=== PATIENT | male | born 1940 | race Caucasian/White ===

== ENCOUNTER 2018-03-24 22:53 | Emergency (ER) | payer MEDICARE, BC ==
[2018-03-24 23:23] LABS: BASOPHILS # (AUTO) 0.1 10^3/uL (0.0-0.1); BASOPHILS % (AUTO) 1.4 %; EOSINOPHILS # (AUTO) 0.3 10^3/uL (0.0-0.7); EOSINOPHILS % (AUTO) 4.3 %; HGB - HEMOGLOBIN 14.8 g/dL (14.0-18.0); LYMPHOCYTES # (AUTO) 1.5 10^3/uL (1.5-3.5); MEAN CORPUSCULAR HGB CONC 34.4 g/dL (32.0-36.0); MEAN PLATELET VOLUME 8.1 fL (7.4-11.4); MONOCYTES # (AUTO) 0.8 10^3/uL (0.0-1.0); MONOCYTES % (AUTO) 9.3 %; NEUTROPHILS # (AUTO) 5.4 10^3/uL (1.5-6.6); PLT - PLATELET COUNT 204 10^3/uL (130-450); RED BLOOD COUNT 4.64 10^6/uL (4.70-6.10); RED CELL DISTRIBUTION WIDTH 13.4 % (12.0-15.0); WHITE BLOOD COUNT 8.1 x10^3/uL (4.8-10.8)
[2018-03-24 23:38] LABS: ALBUMIN/GLOBULIN RATIO 1.1 (1.0-2.2); BILIRUBIN,TOTAL 0.7 mg/dL (0.2-1.0); CALCIUM 9.1 mg/dL (8.5-10.3); CREATININE 0.9 mg/dL (0.6-1.2); TOTAL PROTEIN 7.7 g/dL (6.7-8.2)
[2018-03-24 23:42] LABS: TROPONIN I < 0.04 ng/mL (<0.49)
[2018-03-24 23:44] LABS: CREATINE KINASE MB 4.7 ng/mL (0.6-6.3)
--- NOTE | 2018-03-25 00:07 | ED Physician Documentation ---
PD HPI CHEST PAIN - History obtained from History obtained from: Patient <Jerry Plaza - Last Filed: 03/26/18 15:38> - History obtained from History obtained from: Patient - History of Present Illness Timing - onset: Enter time (20:00) Timing - onset during: Rest (sitting in a chair at onset) Timing - details: Abrupt onset Pain level now: 0 Quality: Pressure Location: Substernal, Other ("teeth and jaw were hurting" (per patient, although did not feel as if this was the chest pain that radiated to jaw)) Improved by: Nothing Worsened by: Other (dizziness when standing/ambulating) Associated symptoms: No: Shortness of air Similar symptoms before: Has not had sx before Recently seen: Not recently seen <Yemi Vale - Last Filed: 03/27/18 09:33> - Stated complaint Stated Complaint: CHEST PX - Chief complaint Chief Complaint: Cardiac - Additional information Additional information: sudden onset rapid palpitations while seated, tonight at 8 PM; also had chest pressure and "my teeth and jaw were hurting". Had dizziness when standing. ( Yemi Vale) Review of Systems Cardiac: reports: Chest pain / pressure, Palpitations. denies: Pedal edema Respiratory: denies: Dyspnea GI: reports: Reviewed and negative Musculoskeletal: denies: Extremity swelling Neurologic: denies: Generalized weakness, Focal weakness, Numbness <Yemi Vale - Last Filed: 03/27/18 09:33> PD PAST MEDICAL HISTORY <Jerry Plaza - Last Filed: 03/26/18 15:38> - Past Medical History Past Medical History: Yes Cardiovascular: Atrial flutter Respiratory: None Neuro: None Endocrine/Autoimmune: None GI: None : Benign prostate hypertrophy, Kidney stones HEENT: Other Psych: None Musculoskeletal: Osteoarthritis, Osteoporosis, Scoliosis, Chronic back pain Derm: None - Past Surgical History Past Surgical History: Yes Ortho: Knee replacement, Other HEENT: Tonsil/Adenoidectomy - Social History Does the pt smoke?: No Smoking Status: Never smoker Does the pt drink ETOH?: Yes ETOH Use: Wine Does the pt have substance abuse?: No - Immunizations Immunizations are current?: Yes - POLST Patient has POLST: No <Yemi Vale - Last Filed: 03/27/18 09:33> - Present Medications Home Medications: Ambulatory Orders Medication Instructions Recorded Confirmed Alendronate [Fosamax] 70 mg PO ONCE 03/26/18 03/26/18 Finasteride [Proscar] 5 mg PO DAILY 03/26/18 03/26/18 Metoprolol Tartrate 25 mg PO DAILY #20 tablet 03/26/18 Tamsulosin [Flomax] 0.4 mg PO DAILY 03/26/18 03/26/18 Trazodone HCl 50 mg PO QPM PRN 03/26/18 03/26/18 - Allergies Allergies/Adverse Reactions: Allergies Allergy/AdvReac Type Severity Reaction Status Date / Time No Known Drug Allergies Allergy Verified 03/24/18 23:09 PD ED PE NORMAL - Vitals Vital signs reviewed: Yes - General General: Alert and oriented X 3, No acute distress, Well developed/nourished - Cardiac Cardiac: No murmur - Respiratory Respiratory: No respiratory distress, Clear bilaterally - Abdomen Abdomen: Soft, Non tender - Derm Derm: Normal color, Warm and dry - Extremities Extremities: No edema <AkankshaYemi Mobley - Last Filed: 03/27/18 09:33> PD ED PE EXPANDED - Cardiac Cardiac: Tachy, Irregularly irregular <AkankshaYemi A - Last Filed: 03/27/18 09:33> Results - EKG (time done) No standard instances Rate: Rate (enter#) (129) Rhythm: Atrial fibrillation [place]: Normal QRS: Normal Ischemia: Normal ST segments Computer interpretation: Disagree with computer (my interpretation is atrial fibrillation, not atrial flutter) - Rads (name of study) chest xray Radiology: Prelim report reviewed, See rad report <AkankshaYemi - Last Filed: 03/27/18 09:33> - Vitals Vitals: Oxygen O2 Source Room air - Labs Labs: Laboratory Tests 03/24/18 03/24/18 03/24/18 23:15 23:15 23:15 WBC 8.1 RBC 4.64 L Hgb 14.8 Hct 43.1 MCV 93.0 MCH 32.0 H MCHC 34.4 RDW 13.4 Plt Count 204 MPV 8.1 Neut # (Auto) 5.4 Lymph # (Auto) 1.5 [place] # (Auto) 0.8 Eos # (Auto) 0.3 Baso # (Auto) 0.1 Absolute Nucleated RBC 0.01 Nucleated RBC % 0.1 Sodium Potassium Chloride Carbon Dioxide Anion Gap BUN Creatinine Estimated GFR (MDRD) Glucose Calcium Total Bilirubin AST ALT Alkaline Phosphatase Total Creatine Kinase 172 CK-MB (CK-2) 4.7 Troponin I < 0.04 Total Protein Albumin Globulin Albumin/Globulin Ratio Lipase 03/24/18 23:15 WBC RBC Hgb Hct MCV MCH MCHC RDW Plt Count MPV Neut # (Auto) Lymph # (Auto) [place] # (Auto) Eos # (Auto) Baso # (Auto) Absolute Nucleated RBC Nucleated RBC % Sodium 130 L Potassium 3.8 Chloride 95 L Carbon Dioxide 26 Anion Gap 9.0 BUN 13 Creatinine 0.9 Estimated GFR (MDRD) 82 L Glucose 115 H Calcium 9.1 Total Bilirubin 0.7 AST 21 ALT 11 Alkaline Phosphatase 66 Total Creatine Kinase CK-MB (CK-2) Troponin I Total Protein 7.7 Albumin 4.0 Globulin 3.7 Albumin/Globulin Ratio 1.1 Lipase 33 PD MEDICAL DECISION MAKING <Jerry Plaza - Last Filed: 03/26/18 15:38> - ED course Complexity details: reviewed results, re-evaluated patient, considered differential, d/w patient <Yemi Vale - Last Filed: 03/27/18 09:33> - ED course ED course: Given cardizem IV x 2 doses with improvement in rate although this was transient and he remained in atrial fibrillation on monitor. Given procainamide drip and approximately 45-50 minutes into the one-hour drip, he converted to NSR. (Yemi Vale) - Sepsis Event Vital Signs: Oxygen O2 Source Room air Departure <Jerry Plaza - Last Filed: 03/26/18 15:38> <Yemi Vale - Last Filed: 03/27/18 09:33> - Departure Disposition: 01 Home, Self Care Clinical Impression: Atrial fibrillation Qualifiers: Atrial fibrillation type: paroxysmal Qualified Code(s): I48.0 - Paroxysmal atrial fibrillation Condition: Good Instructions: ED Afib, ED Chest Pain Atypical Unkn Cause Comments: Follow up with your doctor; call to arrange for next available appointment. If you do not have a doctor, you can contact your insurance provider to be assigned a physician. If you can get in to see a [employer] directly, there are several options off [facility], such as the cardiology group at [facility] ([facility] [email or web address]). Discharge Date/Time: 03/25/18 02:37
[2018-03-25] MEDS ORDERED: diltiaZEM INJ 5 MG/ML VIAL IVP STA ×2 (00:09→00:31)
[2018-03-25] MEDS ORDERED: PROCAINAMIDE 1,000 MG in SODIUM CHLORIDE 0.9% 240 ML IV STA (00:37)
--- NOTE | 2018-03-25 01:54 | XRAY Report ---
Procedure Date: 03/25/2018 Accession Number: [id number] / [id number] Procedure: XR - Chest 2 View X-Ray CPT Code: 56837 FULL RESULT: EXAM: CHEST RADIOGRAPHY EXAM DATE: 03/25/2018 01:30 AM. CLINICAL HISTORY: LEO, chest pain. COMPARISON: None. TECHNIQUE: 2 views. FINDINGS: Lungs/Pleura: Calcified granuloma at the left lung base. The lungs are otherwise clear. No pleural effusion or pneumothorax. Mediastinum: Normal heart size. Tortuous aorta. Other: There is a mild lower thoracic kyphosis. No acute bony abnormality suggested. IMPRESSION: No acute cardiopulmonary process. RADIA
[2018-03-25 02:27] VITALS: BP 114/73
== END 2018-03-25 02:37 | disposition home or self-care (01) ==
LOC: ED 22:53
DX: I48.0 Paroxysmal atrial fibrillation (principal); I48.92 Unspecified atrial flutter
CPT/HCPCS: 36415; 71046; 80053; 82550; 82553; 83690; 84484; 85025; 93005; 96365; 96375; 99284; J2690

== ENCOUNTER 2018-03-26 15:03 | Emergency (ER) | payer MEDICARE, BC ==
[2018-03-26 15:39] LABS: BASOPHILS # (AUTO) 0.1 10^3/uL (0.0-0.1); BASOPHILS % (AUTO) 1.4 %; EOSINOPHILS # (AUTO) 0.3 10^3/uL (0.0-0.7); EOSINOPHILS % (AUTO) 3.1 %; HGB - HEMOGLOBIN 14.8 g/dL (14.0-18.0); LYMPHOCYTES # (AUTO) 1.3 10^3/uL (1.5-3.5); MEAN CORPUSCULAR HEMOGLOBIN 32.1 pg (27.0-31.0); MEAN CORPUSCULAR HGB CONC 34.7 g/dL (32.0-36.0); MEAN CORPUSCULAR VOLUME 92.7 fL (80.0-94.0); MEAN PLATELET VOLUME 8.5 fL (7.4-11.4); MONOCYTES # (AUTO) 0.8 10^3/uL (0.0-1.0); MONOCYTES % (AUTO) 9.3 %; NEUTROPHILS # (AUTO) 5.7 10^3/uL (1.5-6.6); NEUTROPHILS % (AUTO) 70.2 %; PLT - PLATELET COUNT 230 10^3/uL (130-450); RED BLOOD COUNT 4.59 10^6/uL (4.70-6.10); RED CELL DISTRIBUTION WIDTH 13.4 % (12.0-15.0); WHITE BLOOD COUNT 8.1 x10^3/uL (4.8-10.8)
[2018-03-26 15:49] LABS: ALBUMIN 3.9 g/dL (3.2-5.5); ALBUMIN/GLOBULIN RATIO 1.1 (1.0-2.2); BILIRUBIN,TOTAL 0.8 mg/dL (0.2-1.0); CALCIUM 9.2 mg/dL (8.5-10.3); CREATININE 0.6 mg/dL (0.6-1.2); TOTAL PROTEIN 7.6 g/dL (6.7-8.2)
--- NOTE | 2018-03-26 16:04 | XRAY Report ---
Procedure Date: 03/26/2018 Accession Number: [id number] / [id number] Procedure: XR - Chest 1 View X-Ray CPT Code: 26834 FULL RESULT: EXAM: CHEST RADIOGRAPHY EXAM DATE: 03/26/2018 03:42 PM. CLINICAL HISTORY: Cough, tachycardia. COMPARISON: 03/25/2018. TECHNIQUE: 1 view. FINDINGS: Lungs/Pleura: Calcified granuloma in left base. No acute infiltrate, consolidation, effusion, or pneumothorax. Mediastinum: Mild cardiomegaly unchanged. Upper lobe vessels not distended. Other: Osteopenia, degenerative changes. Calcifications of carotid arteries. IMPRESSION: 1. No acute disease. 2. Carotid calcifications; carotid duplex ultrasound is recommended. RADIA
--- NOTE | 2018-03-26 16:25 | ED Physician Documentation ---
History of Present Illness - Stated complaint Stated Complaint: RAPID PULSE/DIZZY - Chief complaint Chief Complaint: Cardiac - History obtained from History obtained from: Patient, Family - History of Present Illness Timing: How many hours ago (2) - Additonal information Additional information: Patient is a 78-year-old male who presents after developing a rapid pulse about 2 hours prior to arrival. The pulse is rapid and irregular when he is standing , and improves when lying down. He denies any associated chest pain, shortness of breath, or lightheadedness. He was seen here 2 days ago for atrial fibrillation, and medical cardioversion occurred with administration of first diltiazem, and then procainamide. He denies history of previous episodes of atrial fibrillation. He has an appointment scheduled with [facility] cardiology for April 09, 2 weeks from now. He is visiting here from [facility], and intends to be here for another 2 months. Review of Systems Constitutional: denies: Fever Ears: denies: Tinnitus/ringing Nose: denies: Congestion Throat: denies: Sore throat Cardiac: reports: Palpitations. denies: Chest pain / pressure Respiratory: denies: Dyspnea, Cough GI: denies: Abdominal Pain, Nausea, Vomiting : denies: Dysuria Skin: denies: Rash Musculoskeletal: denies: Back pain, Extremity swelling Neurologic: denies: Focal weakness, Numbness, Headache PD PAST MEDICAL HISTORY - Past Medical History Past Medical History: Yes Cardiovascular: Atrial flutter Respiratory: None Neuro: None Endocrine/Autoimmune: None GI: None : Benign prostate hypertrophy, Kidney stones HEENT: Other Psych: None Musculoskeletal: Osteoarthritis, Osteoporosis, Scoliosis, Chronic back pain Derm: None - Past Surgical History Past Surgical History: Yes Ortho: Knee replacement, Other HEENT: Tonsil/Adenoidectomy - Present Medications Home Medications: Ambulatory Orders Medication Instructions Recorded Confirmed Alendronate [Fosamax] 70 mg PO ONCE 03/26/18 03/26/18 Finasteride [Proscar] 5 mg PO DAILY 03/26/18 03/26/18 Metoprolol Tartrate 25 mg PO DAILY #20 tablet 03/26/18 Tamsulosin [Flomax] 0.4 mg PO DAILY 03/26/18 03/26/18 Trazodone HCl 50 mg PO QPM PRN 03/26/18 03/26/18 - Allergies Allergies/Adverse Reactions: Allergies Allergy/AdvReac Type Severity Reaction Status Date / Time No Known Drug Allergies Allergy Verified 03/24/18 23:09 - Social History Does the pt smoke?: No Smoking Status: Former smoker (Quit smoking more than 30 years ago.) Does the pt drink ETOH?: Yes Does the pt have substance abuse?: No Additional Social History: This hitting here from [facility], and plans to be here for another 2 months. - Immunizations Immunizations are current?: Yes - POLST Patient has POLST: No PD ED PE NORMAL - Vitals Vital signs reviewed: Yes (Mild hypertension initially.) - General General: Alert and oriented X 3, Well developed/nourished - HEENT HEENT: Atraumatic, Moist mucous membranes, Pharynx benign - Neck Neck: No adenopathy, No JVD - Cardiac Cardiac: No murmur, Other (Regular rate, mostly regular rhythm, with ectopic beats.) - Respiratory Respiratory: No respiratory distress, Clear bilaterally - Abdomen Abdomen: Soft, Non tender - Back Back: No CVA TTP - Derm Derm: No rash - Extremities Extremities: No edema, No calf tenderness / cord - Neuro Neuro: Alert and oriented X 3, No motor deficit, Normal speech Results - Vitals Vitals: Vital Signs - 24 hr 03/26/18 03/26/18 03/26/18 15:15 16:35 17:02 Temperature 37.1 C Heart Rate 83 82 80 Respiratory 16 16 19 Rate Blood Pressure 149/84 H 144/94 H 137/84 H O2 Saturation 96 94 96 03/26/18 17:39 Temperature Heart Rate 73 Respiratory 20 Rate Blood Pressure 144/101 H O2 Saturation Oxygen O2 Source Room air - EKG (time done) 15:13 Rate: Rate (enter#) (77) Rhythm: NSR, Other (premature complexes, both ventricular and supraventricular.) [place]: Normal QRS: Normal Ischemia: Normal ST segments Compare to prior EKG: Changed from prior EKG (No longer in atrial flutter.) Computer interpretation: Agree with computer - Labs Labs: Laboratory Tests 03/26/18 03/26/18 03/26/18 15:22 15:22 15:22 WBC 8.1 RBC 4.59 L Hgb 14.8 Hct 42.6 MCV 92.7 MCH 32.1 H MCHC 34.7 RDW 13.4 Plt Count 230 MPV 8.5 Neut # (Auto) 5.7 Lymph # (Auto) 1.3 L [place] # (Auto) 0.8 Eos # (Auto) 0.3 Baso # (Auto) 0.1 Absolute Nucleated RBC 0.00 Nucleated RBC % 0.0 Sodium 131 L Potassium 3.8 Chloride 98 L Carbon Dioxide 26 Anion Gap 7.0 BUN 13 Creatinine 0.6 Estimated GFR (MDRD) 130 Glucose 108 H Calcium 9.2 Total Bilirubin 0.8 AST 20 ALT 11 Alkaline Phosphatase 64 Troponin I < 0.04 Total Protein 7.6 Albumin 3.9 Globulin 3.7 Albumin/Globulin Ratio 1.1 Lipase 33 - Rads (name of study) CXR Radiology: Prelim report reviewed, EMP read contemporaneously, See rad report (1 ) No acute disease. 2) Carotid calcifications; carotid duplex ultrasound is recommended.) PD MEDICAL DECISION MAKING - ED course Complexity details: reviewed old records, reviewed results, re-evaluated patient , considered differential, d/w patient, d/w family ED course: The patient's presentation is significant for dysrhythmia consisting of frequent supraventricular ectopic beats. His electrocardiogram does not reveal atrial flutter or fibrillation at this time. His CBC and chemistry panel are unremarkable, and his troponin is normal. His chest x-ray is normal from a cardiopulmonary standpoint. However there is incidental finding of carotid calcifications, prompting the radiologist recommend carotid duplex scanning. This would be appropriately be performed on an outpatient nonemergent basis. Treatment in the emergency department included administration of metoprolol 25 mg orally. He remained asymptomatic while in the emergency department, and exhibited ambulation without symptoms. I discussed with him and his family the diagnosis, treatment with metoprolol, follow up with cardiology, as well as potentially worrisome signs or symptoms that should prompt reevaluation in the emergency department. I also discussed with them the recommendation for carotid artery evaluation on a nonemergent basis. - Sepsis Event Vital Signs: Vital Signs - 24 hr 03/26/18 03/26/18 03/26/18 15:15 16:35 17:02 Temperature 37.1 C Heart Rate 83 82 80 Respiratory 16 16 19 Rate Blood Pressure 149/84 H 144/94 H 137/84 H O2 Saturation 96 94 96 03/26/18 17:39 Temperature Heart Rate 73 Respiratory 20 Rate Blood Pressure 144/101 H O2 Saturation Oxygen O2 Source Room air Departure - Departure Disposition: 01 Home, Self Care Clinical Impression: Atrial arrhythmia Condition: Stable Instructions: ED Dysrhythmia Unspecified Follow-Up: MARÍA CORDOBA MD [Physician No Access] - [facility] [Provider Group] Prescriptions: Metoprolol Tartrate 25 mg PO DAILY #20 tablet Comments: Take metoprolol 25 mg daily as prescribed. Follow-up with cardiology next week as scheduled. Try to schedule appointment with primary physician. Return to the emergency department if you develop chest pain, shortness of breath, persistent lightheadedness, or otherwise worsening symptoms. Discharge Date/Time: 03/26/18 17:50
[2018-03-26] MEDS ORDERED: METOPROLOL TARTRATE 50 MG TABLET PO STA (16:27)
[2018-03-26 17:40] VITALS: BP 144/101
== END 2018-03-26 17:50 | disposition home or self-care (01) ==
LOC: ED 15:03
DX: I49.9 Cardiac arrhythmia, unspecified (principal); I65.23 Occlusion and stenosis of bilateral carotid arteries; Z86.79 Personal history of other diseases of the circulatory system
CPT/HCPCS: 36415; 71045; 80053; 83690; 84484; 85025; 93005; 99284; A9270

== ENCOUNTER 2018-07-12 10:48 | Outpatient (CLI) | payer MEDICARE, BC ==
[2018-07-12 18:00] LABS: INR 2.1 (0.8-1.2)
== END 2018-07-12 10:49 | disposition home or self-care (01) ==
LOC: LAB.F 10:48
PROVIDERS: ATTEND Internal Medicine
DX: Z98.890 Other specified postprocedural states (principal); Z86.79 Personal history of other diseases of the circulatory system
CPT/HCPCS: 36415; 85610

== ENCOUNTER 2018-07-26 09:43 | Outpatient (CLI) | payer MEDICARE, BC ==
[2018-07-26 18:05] LABS: INR 1.4 (0.8-1.2); PT - PROTHROMBIN TIME 15.9 secs (9.9-12.6)
== END 2018-07-26 09:44 | disposition home or self-care (01) ==
LOC: LAB.F 09:43
PROVIDERS: ATTEND Internal Medicine
DX: Z98.890 Other specified postprocedural states (principal); Z86.79 Personal history of other diseases of the circulatory system
CPT/HCPCS: 36415; 85610

== ENCOUNTER 2018-08-09 12:43 | Outpatient (CLI) | payer MEDICARE, BC | END 2018-08-09 12:44 | disposition home or self-care (01) | LOC: LAB.F 12:43 | PROVIDERS: ATTEND Internal Medicine | DX: Z86.79 Personal history of other diseases of the circulatory system (principal); Z98.890 Other specified postprocedural states | CPT/HCPCS: 85610 ==

== ENCOUNTER 2019-10-26 18:55 | Emergency (ER) | payer MEDICARE, BC ==
[2019-10-26] MEDS ORDERED: METOPROLOL 5 MG/5 ML VIAL IVP STA (19:25)
--- NOTE | 2019-10-26 19:31 | ED Physician Documentation ---
PD HPI CHEST PAIN - Stated complaint Stated Complaint: CP - Chief complaint Chief Complaint: Cardiac - History obtained from History obtained from: Patient (79-year-old gentleman with history of coronary disease, status post three-vessel bypass with maze procedure for atrial fibrillation done in May 2018. 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 Today about 5pm after hard day at work but not truly an exertional issue he developed flopping in his chest, chest pressure and teeth aching associated with fatigue. There is no associated shortness of breath. There is very very mild nausea. No pedal edema. He feels like his prior anginal equivalent.) Review of Systems Ten Systems: 10 systems reviewed and negative Constitutional: reports: Fatigue. denies: Fever, Chills Throat: denies: Sore throat Cardiac: reports: Chest pain / pressure, Palpitations. denies: Pedal edema, Calf pain Respiratory: denies: Dyspnea, Cough PD PAST MEDICAL HISTORY - Past Medical History Past Medical History: Yes Cardiovascular: Atrial flutter Respiratory: None Neuro: None Endocrine/Autoimmune: None GI: None : Benign prostate hypertrophy, Kidney stones HEENT: Other Psych: None Musculoskeletal: Osteoarthritis, Osteoporosis, Scoliosis, Chronic back pain Derm: None - Past Surgical History Past Surgical History: Yes Ortho: Knee replacement, Other HEENT: Tonsil/Adenoidectomy - Present Medications Home Medications: Ambulatory Orders Medication Instructions Recorded Confirmed Alendronate [Fosamax] 70 mg PO ONCE 03/26/18 10/26/19 Finasteride [Proscar] 5 mg PO DAILY 03/26/18 10/26/19 Metoprolol Tartrate 25 mg PO DAILY #20 tablet 03/26/18 10/26/19 Tamsulosin [Flomax] 0.4 mg PO DAILY 03/26/18 10/26/19 Trazodone HCl 50 mg PO QPM PRN 03/26/18 10/26/19 - Allergies Allergies/Adverse Reactions: Allergies Allergy/AdvReac Type Severity Reaction Status Date / Time No Known Drug Allergies Allergy Verified 10/26/19 19:04 - Social History Does the pt smoke?: No Smoking Status: Never smoker Does the pt drink ETOH?: Yes Does the pt have substance abuse?: No - Immunizations Immunizations are current?: Yes - POLST Patient has POLST: No PD ED PE NORMAL - Vitals Vital signs reviewed: Yes - General General: Alert and oriented X 3, No acute distress - HEENT HEENT: PERRL, EOMI - Neck Neck: Supple, no meningeal sign, No bony TTP - Cardiac Cardiac: No murmur, Other (Irregular, slightly rapid, no murmur) - Respiratory Respiratory: No respiratory distress, Clear bilaterally - Abdomen Abdomen: Soft, Non tender - Back Back: No CVA TTP, No spinal TTP - Derm Derm: Normal color, Warm and dry - Extremities Extremities: No edema, No calf tenderness / cord - Neuro Neuro: Alert and oriented X 3, No motor deficit, No sensory deficit, Normal speech Results - Vitals Vitals: Vital Signs - 24 hr 10/26/19 10/26/19 10/26/19 18:59 19:09 19:42 Temperature 37.3 C Heart Rate 80 98 111 H Respiratory 17 18 17 Rate Blood Pressure 142/89 H 126/85 H O2 Saturation 98 98 10/26/19 10/26/19 10/26/19 19:46 20:02 20:47 Temperature Heart Rate 76 79 76 Respiratory 19 16 16 Rate Blood Pressure 105/70 104/67 O2 Saturation 106 H 95 96 Oxygen O2 Source Room air - EKG (time done) 1901 Rate: Rate (enter#) (95) Rhythm: Sinus tachycardia (With both PACs and PVCs) [place]: Normal Intervals: Normal [place] QRS: Normal Ischemia: Normal ST segments Computer interpretation: Agree with computer - Labs Labs: Laboratory Tests 10/26/19 10/26/19 10/26/19 19:30 19:30 19:30 WBC 7.5 RBC 4.47 L Hgb 14.4 Hct 41.9 L MCV 93.7 MCH 32.2 H MCHC 34.4 RDW 12.9 Plt Count 240 MPV 9.7 Neut # (Auto) 5.3 Lymph # (Auto) 1.1 L [place] # (Auto) 0.7 Eos # (Auto) 0.3 Baso # (Auto) 0.1 Absolute Nucleated RBC 0.00 Nucleated RBC % 0.0 Sodium 135 Potassium 3.7 Chloride 98 L Carbon Dioxide 26 Anion Gap 11.0 BUN 20 Creatinine 0.8 Estimated GFR (MDRD) 93 Glucose 121 H Calcium 9.3 Magnesium 2.1 Total Bilirubin 0.6 AST 23 ALT 14 Alkaline Phosphatase 47 Troponin I High Sens Total Protein 7.4 Albumin 4.5 Globulin 2.9 Albumin/Globulin Ratio 1.6 Lipase 37 TSH 2.30 10/26/19 19:30 WBC RBC Hgb Hct MCV MCH MCHC RDW Plt Count MPV Neut # (Auto) Lymph # (Auto) [place] # (Auto) Eos # (Auto) Baso # (Auto) Absolute Nucleated RBC Nucleated RBC % Sodium Potassium Chloride Carbon Dioxide Anion Gap BUN Creatinine Estimated GFR (MDRD) Glucose Calcium Magnesium Total Bilirubin AST ALT Alkaline Phosphatase Troponin I High Sens 8.5 Total Protein Albumin Globulin Albumin/Globulin Ratio Lipase TSH PD MEDICAL DECISION MAKING - ED course ED course: 79-year-old gentleman with palpitations and chest pressure, nonischemic EKG and negative troponin here. Symptoms completely resolved after the administration of 5 mg of metoprolol and he was no longer with so much ectopy on the monitor so it was likely the ectopy that was causing his symptoms. He will talk with his gymnastic teacher tomorrow and arrange follow-up. Departure - Departure Disposition: 01 Home, Self Care Clinical Impression: Atrial fibrillation Qualifiers: Atrial fibrillation type: paroxysmal Qualified Code(s): I48.0 - Paroxysmal atrial fibrillation Condition: Good Record reviewed to determine appropriate education?: Yes Instructions: Atrial Fibrillation Dc Comments: Talk with your gymnastic teacher tomorrow and arrange a sooner follow-up visit. Co ntinue current medications. Return for new or worsening symptoms or recurrent symptoms.
[2019-10-26 19:41] LABS: BASOPHILS # (AUTO) 0.1 10^3/uL (0.0-0.1); BASOPHILS % (AUTO) 1.2 %; EOSINOPHILS # (AUTO) 0.3 10^3/uL (0.0-0.7); EOSINOPHILS % (AUTO) 3.9 %; HGB - HEMOGLOBIN 14.4 g/dL (14.0-18.0); LYMPHOCYTES # (AUTO) 1.1 10^3/uL (1.5-3.5); LYMPHOCYTES % (AUTO) 14.9 %; MEAN CORPUSCULAR HEMOGLOBIN 32.2 pg (27.0-31.0); MEAN CORPUSCULAR HGB CONC 34.4 g/dL (32.0-36.0); MEAN CORPUSCULAR VOLUME 93.7 fL (80.0-94.0); MEAN PLATELET VOLUME 9.7 fL (7.4-11.4); MONOCYTES # (AUTO) 0.7 10^3/uL (0.0-1.0); MONOCYTES % (AUTO) 9.5 %; NEUTROPHILS # (AUTO) 5.3 10^3/uL (1.5-6.6); NEUTROPHILS % (AUTO) 70.1 %; PLT - PLATELET COUNT 240 10^3/uL (130-450); RED BLOOD COUNT 4.47 10^6/uL (4.70-6.10); RED CELL DISTRIBUTION WIDTH 12.9 % (12.0-15.0); WHITE BLOOD COUNT 7.5 x10^3/uL (4.8-10.8)
[2019-10-26 19:50] LABS: ALBUMIN 4.5 g/dL (3.2-5.5); ALBUMIN/GLOBULIN RATIO 1.6 (1.0-2.2); BILIRUBIN,TOTAL 0.6 mg/dL (0.2-1.0); CALCIUM 9.3 mg/dL (8.5-10.3); CREATININE 0.8 mg/dL (0.6-1.2); MAGNESIUM 2.1 mg/dL (1.7-2.8); TOTAL PROTEIN 7.4 g/dL (6.7-8.2)
--- NOTE | 2019-10-26 20:03 | XRAY Report ---
Reason: chest pressure Procedure Date: 10/26/2019 Accession Number: [id number] / [id number] Procedure: XR - Chest 1 View X-Ray CPT Code: 60259 Final Report FULL RESULT: EXAM: CHEST RADIOGRAPHY EXAM DATE: 10/26/2019 07:53 PM. CLINICAL HISTORY: Chest pressure. COMPARISON: CHEST 1 VIEW 03/26/2018 3:34 PM. TECHNIQUE: 1 view. FINDINGS: LUNGS: The lungs are hypoventilatory with compressive changes. Again calcified granuloma in the left lower lung zone. The aerated portions of the lungs are clear, however the lung bases are poorly evaluated. PLEURA: No significant pleural effusion. No clinically significant pneumothorax. MEDIASTINUM: Median sternotomy wires and surgical clips are present consistent with CABG. Heart and mediastinal contours are notable for aortic calcification. The cardiac silhouette is normal in size. BONES: No suspicious osseous lesions. IMPRESSION: Expiratory chest x-ray. No acute disease within the limits of this study, however, the lung bases are poorly evaluated and cannot exclude a basilar process. RADIA
[2019-10-26 20:48] VITALS: BP 104/67
== END 2019-10-26 21:00 | disposition home or self-care (01) ==
LOC: ED 18:55
DX: I48.0 Paroxysmal atrial fibrillation (principal); I49.1 Atrial premature depolarization; I49.3 Ventricular premature depolarization; I25.10 Atherosclerotic heart disease of native coronary artery without angina pectoris; Z95.1 Presence of aortocoronary bypass graft
CPT/HCPCS: 36415; 71045; 80053; 83690; 83735; 84443; 84484; 85025; 93005; 96374; 99284

== ENCOUNTER 2020-03-30 09:04 | Outpatient (CLI) | payer MEDICARE, BC ==
[2020-03-30 09:35] LABS: BASOPHILS # (AUTO) 0.1 10^3/uL (0.0-0.1); BASOPHILS % (AUTO) 1.6 %; EOSINOPHILS # (AUTO) 0.4 10^3/uL (0.0-0.7); EOSINOPHILS % (AUTO) 7.2 %; HGB - HEMOGLOBIN 14.2 g/dL (14.0-18.0); LYMPHOCYTES # (AUTO) 1.2 10^3/uL (1.5-3.5); LYMPHOCYTES % (AUTO) 22.3 %; MEAN CORPUSCULAR HEMOGLOBIN 32.6 pg (27.0-31.0); MEAN CORPUSCULAR HGB CONC 34.2 g/dL (32.0-36.0); MEAN CORPUSCULAR VOLUME 95.4 fL (80.0-94.0); MEAN PLATELET VOLUME 9.4 fL (7.4-11.4); MONOCYTES # (AUTO) 0.5 10^3/uL (0.0-1.0); MONOCYTES % (AUTO) 10.3 %; NEUTROPHILS % (AUTO) 58.4 %; PLT - PLATELET COUNT 198 10^3/uL (130-450); RED BLOOD COUNT 4.35 10^6/uL (4.70-6.10); WHITE BLOOD COUNT 5.2 x10^3/uL (4.8-10.8)
[2020-03-30 10:04] LABS: ALBUMIN 4.7 g/dL (3.2-5.5); ALKALINE PHOSPHATASE 39 IU/L (42-121); ALT ALANINE AMINOTRANSFERASE 14 IU/L (10-60); AST ASPARTATE AMINOTRANSFERASE 21 IU/L (10-42); BILIRUBIN,TOTAL 1.2 mg/dL (0.2-1.0); BUN - BLOOD UREA NITROGEN 11 mg/dL (6-20); CALCIUM 8.7 mg/dL (8.5-10.3); CARBON DIOXIDE - CO2 29 mmol/L (21-32); CHLORIDE 98 mmol/L (101-111); CHOL/HDL RATIO 2.4 (<5.0); CHOLESTEROL 120 mg/dL; CREATININE 0.7 mg/dL (0.6-1.2); GLUCOSE 100 mg/dL (70-100); HDL CHOLESTEROL 51 mg/dL; LDL CHOLESTEROL,CALCULATED 60 mg/dL; LDL/HDL RATIO 1.2 (<3.6); SODIUM 132 mmol/L (135-145); VLDL CHOLESTEROL 9 mg/dL
== END 2020-03-30 09:05 | disposition home or self-care (01) ==
LOC: LAB 09:04
PROVIDERS: ATTEND Family Medicine
DX: N40.1 Benign prostatic hyperplasia with lower urinary tract symptoms (principal); N13.8 Other obstructive and reflux uropathy; I48.91 Unspecified atrial fibrillation; I25.810 Atherosclerosis of coronary artery bypass graft(s) without angina pectoris; D23.9 Other benign neoplasm of skin, unspecified
CPT/HCPCS: 36415; 80053; 80061; 83721; 84443; 85025

== ENCOUNTER 2020-04-03 08:00 | Outpatient (CLI) | payer MEDICARE, BC | END 2020-04-03 23:59 | disposition home or self-care (01) | LOC: LAB.WCP 08:00 | PROVIDERS: ATTEND Family Medicine | DX: R06.09 Other forms of dyspnea (principal) | CPT/HCPCS: 36415; 83880 ==

== ENCOUNTER 2020-04-29 08:42 | Emergency (ER) | payer MEDICARE, BC ==
--- NOTE | 2020-04-29 09:20 | ED Physician Documentation ---
History of Present Illness - Stated complaint Stated Complaint: DIZZYNESS - Chief complaint Chief Complaint: Cardiac - History obtained from History obtained from: Patient - History of Present Illness Timing: How many days ago (3) - Additonal information Additional information: 80 y/o male with dizziness when standing has taken his blood pressure at home and it is elevated. He has come to the ED today with complaint of dizziness on standing and elevated blood pressure. Review of Systems Constitutional: denies: Fever, Myalgias, Fatigue Eyes: denies: Decreased vision Ears: denies: Ear pain Nose: denies: Rhinorrhea / runny nose, Congestion Throat: denies: Sore throat Cardiac: denies: Chest pain / pressure, Palpitations, Pedal edema, Calf pain Respiratory: denies: Dyspnea, Cough GI: denies: Abdominal Pain, Nausea, Vomiting, Constipation, Diarrhea : denies: Dysuria, Frequency Skin: denies: Rash Musculoskeletal: denies: Neck pain, Back pain, Extremity pain Neurologic: reports: Headache. denies: Generalized weakness, Focal weakness, Nu mbness, Head injury, LOC PD PAST MEDICAL HISTORY - Past Medical History Cardiovascular: Atrial flutter Respiratory: None Neuro: None Endocrine/Autoimmune: None GI: None : Benign prostate hypertrophy, Kidney stones HEENT: Other Psych: None Musculoskeletal: Osteoarthritis, Osteoporosis, Scoliosis, Chronic back pain Derm: None - Past Surgical History Past Surgical History: Yes Ortho: Knee replacement, Other HEENT: Tonsil/Adenoidectomy - Present Medications Home Medications: Ambulatory Orders Medication Instructions Recorded Confirmed Alendronate [Fosamax] 70 mg PO ONCE 03/26/18 10/26/19 Finasteride [Proscar] 5 mg PO DAILY 03/26/18 10/26/19 Metoprolol Tartrate 25 mg PO DAILY #20 tablet 03/26/18 10/26/19 Tamsulosin [Flomax] 0.4 mg PO DAILY 03/26/18 10/26/19 Trazodone HCl 50 mg PO QPM PRN 03/26/18 10/26/19 - Allergies Allergies/Adverse Reactions: Allergies Allergy/AdvReac Type Severity Reaction Status Date / Time No Known Drug Allergies Allergy Verified 04/29/20 08:58 - Social History Does the pt smoke?: No Smoking Status: Never smoker Does the pt drink ETOH?: Yes Does the pt have substance abuse?: No - Immunizations Immunizations are current?: Yes - POLST Patient has POLST: No PD ED PE NORMAL - Vitals Vital signs reviewed: Yes (hypertensive ) - General General: Alert and oriented X 3, No acute distress, Well developed/nourished - HEENT HEENT: Atraumatic, PERRL, EOMI - Neck Neck: Supple, no meningeal sign, No bony TTP - Cardiac Cardiac: RRR, No murmur - Respiratory Respiratory: No respiratory distress, Clear bilaterally - Abdomen Abdomen: Normal bowel sounds, Soft, Non tender, Non distended, No organomegaly - Back Back: No CVA TTP, No spinal TTP - Derm Derm: Normal color, Warm and dry, No rash - Extremities Extremities: No deformity, No edema - Neuro Neuro: Alert and oriented X 3, purchasing associate 2-12 intact, No motor deficit, No sensory deficit, Normal speech Eye Opening: Spontaneous Motor: Obeys Commands Verbal: Oriented GCS Score: 15 - Psych Psych: Normal mood, Normal affect Results - Vitals Vitals: Vital Signs - 24 hr 04/29/20 04/29/20 04/29/20 08:53 10:00 10:30 Temperature 36.6 C Heart Rate 58 L 54 L 55 L Respiratory 16 18 17 Rate Blood Pressure 184/92 H 141/87 H 157/84 H O2 Saturation 100 97 99 04/29/20 11:00 Temperature Heart Rate 54 L Respiratory 16 Rate Blood Pressure 131/89 H O2 Saturation 99 Oxygen O2 Source Room air - EKG (time done) 0850 Rate: Rate (enter#) (61) Rhythm: NSR Ischemia: Normal ST segments Compare to prior EKG: Changed from prior EKG ([facility] 10-26-2019 the rate has decreased) Computer interpretation: Agree with computer - Labs Labs: Laboratory Tests 04/29/20 04/29/20 04/29/20 09:05 09:05 09:05 WBC 4.7 L RBC 4.33 L Hgb 14.4 Hct 41.4 L MCV 95.6 H MCH 33.3 H MCHC 34.8 RDW 12.9 Plt Count 198 MPV 10.0 Neut # (Auto) 2.7 Lymph # (Auto) 1.2 L [place] # (Auto) 0.5 Eos # (Auto) 0.3 Baso # (Auto) 0.1 Absolute Nucleated RBC 0.00 Nucleated RBC % 0.0 Sodium 133 L Potassium 3.6 Chloride 97 L Carbon Dioxide 29 Anion Gap 7.0 BUN 11 Creatinine 0.7 Estimated GFR (MDRD) 109 Glucose 103 H Calcium 9.1 Total Bilirubin 1.2 H AST 22 ALT 14 Alkaline Phosphatase 46 Troponin I High Sens 4.5 Total Protein 7.2 Albumin 4.4 Globulin 2.8 Albumin/Globulin Ratio 1.6 Lipase 29 Urine Color Urine Clarity Urine pH Ur Specific [place] Urine Protein Urine Glucose (UA) Urine Ketones Urine Occult Blood Urine Nitrite Urine Bilirubin Urine Urobilinogen Ur Leukocyte Esterase Ur Microscopic Review Urine Culture Comments 04/29/20 10:40 WBC RBC Hgb Hct MCV MCH MCHC RDW Plt Count MPV Neut # (Auto) Lymph # (Auto) [place] # (Auto) Eos # (Auto) Baso # (Auto) Absolute Nucleated RBC Nucleated RBC % Sodium Potassium Chloride Carbon Dioxide Anion Gap BUN Creatinine Estimated GFR (MDRD) Glucose Calcium Total Bilirubin AST ALT Alkaline Phosphatase Troponin I High Sens Total Protein Albumin Globulin Albumin/Globulin Ratio Lipase Urine Color YELLOW Urine Clarity CLEAR Urine pH 7.0 Ur Specific [place] 1.010 Urine Protein NEGATIVE Urine Glucose (UA) NEGATIVE Urine Ketones NEGATIVE Urine Occult Blood NEGATIVE Urine Nitrite NEGATIVE Urine Bilirubin NEGATIVE Urine Urobilinogen 0.2 (NORMAL) Ur Leukocyte Esterase NEGATIVE Ur Microscopic Review NOT INDICATED Urine Culture Comments NOT INDICATED - Rads (name of study) chest Radiology: Prelim report reviewed (Impression: Unremarkable portable chest for age, with note made of postoperative and degenerative change.), Final report received, EMP read indepedently, See rad report Procedures - IVC sono (time) 0940 Bedside IVC sono: IVC measures (cm) (0.97), IVC collapsed c insp (cm) (complete), Dehydration (est 1-2 liter deficit) PD MEDICAL DECISION MAKING - ED course Complexity details: reviewed old records, reviewed results, re-evaluated patient, considered differential, d/w patient ED course: 80-year-old male complaining of dizziness on standing is found to be dehydrated on interrogation of the inferior vena cava and he is administered intravenous saline with resolution of his symptoms. Departure - Departure Disposition: 01 Home, Self Care Clinical Impression: Dehydration Condition: Stable Instructions: ED Dehydration Follow-Up: Jerry Ramirez MD [Primary Care Provider] - Discharge Date/Time: 04/29/20 11:35
[2020-04-29 09:23] LABS: BASOPHILS # (AUTO) 0.1 10^3/uL (0.0-0.1); BASOPHILS % (AUTO) 1.7 %; EOSINOPHILS # (AUTO) 0.3 10^3/uL (0.0-0.7); EOSINOPHILS % (AUTO) 5.8 %; HGB - HEMOGLOBIN 14.4 g/dL (14.0-18.0); LYMPHOCYTES # (AUTO) 1.2 10^3/uL (1.5-3.5); LYMPHOCYTES % (AUTO) 24.6 %; MEAN CORPUSCULAR HEMOGLOBIN 33.3 pg (27.0-31.0); MEAN CORPUSCULAR HGB CONC 34.8 g/dL (32.0-36.0); MEAN CORPUSCULAR VOLUME 95.6 fL (80.0-94.0); MONOCYTES # (AUTO) 0.5 10^3/uL (0.0-1.0); MONOCYTES % (AUTO) 10.3 %; NEUTROPHILS # (AUTO) 2.7 10^3/uL (1.5-6.6); NEUTROPHILS % (AUTO) 57.2 %; PLT - PLATELET COUNT 198 10^3/uL (130-450); RED BLOOD COUNT 4.33 10^6/uL (4.70-6.10); RED CELL DISTRIBUTION WIDTH 12.9 % (12.0-15.0); WHITE BLOOD COUNT 4.7 x10^3/uL (4.8-10.8)
--- NOTE | 2020-04-29 09:23 | XRAY Report ---
PROCEDURE: Chest 1 View X-Ray INDICATIONS: Chest pain TECHNIQUE: One view of the chest was acquired. COMPARISON: 10/26/2019, 03/26/2018, 03/25/2018 FINDINGS: Surgical changes and devices: Post CABG changes are seen. Lungs and pleura: No pleural effusions or pneumothorax. Lungs are clear. Mediastinum: The aorta is prominent and tortuous. The cardiac contours are within normal limits. Bones and chest wall: No suspicious bony lesions. Age-appropriate degenerative changes are seen. Overlying soft tissues appear unremarkable. IMPRESSION: Unremarkable portable chest for age, with note made of postoperative and degenerative change. Reviewed by: Olayinka Ayon MD on 04/29/2020 8:21 AM JUAN ALBERTO Approved by: Olayinka Ayon MD on 04/29/2020 8:21 AM JUAN ALBERTO Station ID: [id number]
[2020-04-29 09:33] LABS: ALBUMIN 4.4 g/dL (3.2-5.5); ALBUMIN/GLOBULIN RATIO 1.6 (1.0-2.2); BILIRUBIN,TOTAL 1.2 mg/dL (0.2-1.0); CALCIUM 9.1 mg/dL (8.5-10.3); CREATININE 0.7 mg/dL (0.6-1.2); TOTAL PROTEIN 7.2 g/dL (6.7-8.2)
[2020-04-29] MEDS ORDERED: SODIUM CHLORIDE 0.9% 1,000 ML IV STA (09:45)
[2020-04-29 10:49] LABS: BILIRUBIN,URINE NEGATIVE (NEGATIVE); GLUCOSE, URINE (UA) NEGATIVE (NEGATIVE); KETONES,URINE (UA) NEGATIVE (NEGATIVE); LEUKOCYTE ESTERASE, URINE NEGATIVE (NEGATIVE); NITRITE,URINE NEGATIVE (NEGATIVE); OCCULT BLOOD,URINE NEGATIVE (NEGATIVE); PROTEIN,URINE NEGATIVE (NEGATIVE); UROBILINOGEN,URINE 0.2 (NORMAL) E.U./dL (NORMAL)
[2020-04-29 10:50] LABS: CLARITY,URINE CLEAR (CLEAR)
[2020-04-29 11:30] VITALS: BP 131/89
== END 2020-04-29 11:35 | disposition home or self-care (01) ==
LOC: ED 08:42
DX: E86.0 Dehydration (principal); R42 Dizziness and giddiness; I10 Essential (primary) hypertension; I49.3 Ventricular premature depolarization
CPT/HCPCS: 36415; 71045; 80053; 81001; 81003; 83690; 84484; 85025; 87086; 93005; 96360; 99283

== ENCOUNTER 2020-05-08 15:49 | Outpatient (CLI) | payer MEDICARE, BC ==
--- NOTE | 2020-05-08 16:21 | XRAY Report ---
PROCEDURE: Foot 3 View RT INDICATIONS: PAINFULL 1ST MP JOINT R FOOT TECHNIQUE: 3 views of the foot were acquired. COMPARISON: None. FINDINGS: Bones: No fractures or dislocations. No suspicious bony lesions. There is severe first metatarsoph alangeal joint degeneration, moderate first tarsometatarsal joint degeneration, and. mild interphalan geal joint degeneration. Calcaneal spurring. Soft tissues: No tibiotalar joint effusion. Achilles tendon appears normal. Bunion. Small radiopaq ue soft tissue foreign body adjacent to the first metatarsophalangeal joint. Atherosclerotic calcific ations noted. IMPRESSION: 1. 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 2. Bunion. There is a small radiopaque foreign body adjacent to the first metatarsophalangeal joint. 3. Calcaneal spurring. Reviewed by: Mirza Ramirez MD on 05/08/2020 4:20 PM PDT Approved by: Mirza Ramirez MD on 05/08/2020 4:20 PM PDT Station ID: [id number]
== END 2020-05-08 15:50 | disposition home or self-care (01) ==
LOC: DI 15:49
PROVIDERS: ATTEND Podiatrist
DX: M19.071 Primary osteoarthritis, right ankle and foot (principal); M21.611 Bunion of right foot; M77.31 Calcaneal spur, right foot

== ENCOUNTER 2020-05-26 10:31 | Emergency (ER) | payer MEDICARE, BC ==
--- NOTE | 2020-05-26 10:51 | ED Physician Documentation ---
History of Present Illness - Stated complaint Stated Complaint: HIGH BLOOD PRESSURE - History obtained from History obtained from: Patient - History of Present Illness Timing: Today - Additonal information Additional information: 80-year-old male has noticed over the past 2 months and elevated blood pressure periodically. He has taken his blood pressure usually in the morning and in the evening and today his blood pressures were elevated in the 180 range and he has become concerned he is coming to the emerge department for evaluation. He has noted some constipation over the past 2 months and today he took some laxative and was able to get relief of the constipation when he continued to have elevated blood pressure after that he has come to the emergency department. He gives a history of a prior incident of urinary retention for which he was treated in [facility]. He is on some medication for his bladder and he has not on antihypertensive.He does not have a urologist here. Review of Systems Constitutional: denies: Fever Eyes: denies: Decreased vision Ears: denies: Ear pain Nose: denies: Congestion Throat: denies: Sore throat Cardiac: denies: Chest pain / pressure, Palpitations Respiratory: denies: Dyspnea, Cough GI: reports: Constipation. denies: Abdominal Pain, Nausea, Vomiting, Diarrhea : denies: Dysuria, Frequency, Hematuria, Discharge Musculoskeletal: denies: Neck pain, Back pain, Extremity pain PD PAST MEDICAL HISTORY - Past Medical History Cardiovascular: Atrial flutter Respiratory: None Neuro: None Endocrine/Autoimmune: None GI: None : Benign prostate hypertrophy, Kidney stones HEENT: Other Psych: None Musculoskeletal: Osteoarthritis, Osteoporosis, Scoliosis, Chronic back pain Derm: None - Past Surgical History Past Surgical History: Yes Ortho: Knee replacement, Other HEENT: Tonsil/Adenoidectomy - Present Medications Home Medications: Ambulatory Orders Medication Instructions Recorded Confirmed Alendronate [Fosamax] 70 mg PO ONCE 03/26/18 10/26/19 Finasteride [Proscar] 5 mg PO DAILY 03/26/18 10/26/19 Metoprolol Tartrate 25 mg PO DAILY #20 tablet 03/26/18 10/26/19 Tamsulosin [Flomax] 0.4 mg PO DAILY 03/26/18 10/26/19 Trazodone HCl 50 mg PO QPM PRN 03/26/18 10/26/19 - Allergies Allergies/Adverse Reactions: Allergies Allergy/AdvReac Type Severity Reaction Status Date / Time No Known Drug Allergies Allergy Verified 05/26/20 10:49 - Social History Does the pt smoke?: No Smoking Status: Never smoker Does the pt drink ETOH?: Yes Does the pt have substance abuse?: No - Immunizations Immunizations are current?: Yes - POLST Patient has POLST: No PD ED PE NORMAL - Vitals Vital signs reviewed: Yes (Hypertensive) - General General: Alert and oriented X 3, No acute distress, Well developed/nourished - HEENT HEENT: Atraumatic, PERRL, EOMI - Neck Neck: Supple, no meningeal sign, No bony TTP - Cardiac Cardiac: RRR, No murmur - Respiratory Respiratory: No respiratory distress, Clear bilaterally - Abdomen Abdomen: Normal bowel sounds, Soft, Non tender - Back Back: No CVA TTP, No spinal TTP - Derm Derm: Normal color, Warm and dry, No rash - Extremities Extremities: No deformity, No edema - Neuro Neuro: Alert and oriented X 3, radiator specialist 2-12 intact, No motor deficit, No sensory deficit, Normal speech Eye Opening: Spontaneous Motor: Obeys Commands Verbal: Oriented GCS Score: 15 - Psych Psych: Normal mood, Normal affect Results - Vitals Vitals: Vital Signs - 24 hr 05/26/20 05/26/20 05/26/20 10:49 11:00 12:00 Temperature 36.9 C Heart Rate 64 73 62 Respiratory 16 12 13 Rate Blood Pressure 179/97 H 166/91 H 144/88 H O2 Saturation 99 99 97 Oxygen O2 Source Room air - EKG (time done) 1040 Rate: Rate (enter#) (64) Rhythm: NSR Ischemia: Q waves Compare to prior EKG: Unchanged from prior EKG (SPT 04-29-2020 no sig change) Computer interpretation: Agree with computer - Labs Labs: Laboratory Tests 05/26/20 05/26/20 05/26/20 11:19 11:19 11:19 WBC 6.3 RBC 4.34 L Hgb 14.3 Hct 40.8 L MCV 94.0 MCH 32.9 H MCHC 35.0 RDW 12.6 Plt Count 208 MPV 9.6 Neut # (Auto) 4.5 Lymph # (Auto) 1.0 L [place] # (Auto) 0.5 Eos # (Auto) 0.2 Baso # (Auto) 0.1 Absolute Nucleated RBC 0.00 Nucleated RBC % 0.0 Sodium 131 L Potassium 4.0 Chloride 97 L Carbon Dioxide 23 Anion Gap 11.0 BUN 12 Creatinine 0.6 Estimated GFR (MDRD) 130 Glucose 103 H Calcium 9.1 Total Bilirubin 1.2 H AST 20 ALT 13 Alkaline Phosphatase 52 Troponin I High Sens 4.5 Total Protein 7.2 Albumin 4.4 Globulin 2.8 Albumin/Globulin Ratio 1.6 Lipase 27 Urine Color Urine Clarity Urine pH Ur Specific [place] Urine Protein Urine Glucose (UA) Urine Ketones Urine Occult Blood Urine Nitrite Urine Bilirubin Urine Urobilinogen Ur Leukocyte Esterase Ur Microscopic Review Urine Culture Comments 05/26/20 11:30 WBC RBC Hgb Hct MCV MCH MCHC RDW Plt Count MPV Neut # (Auto) Lymph # (Auto) [place] # (Auto) Eos # (Auto) Baso # (Auto) Absolute Nucleated RBC Nucleated RBC % Sodium Potassium Chloride Carbon Dioxide Anion Gap BUN Creatinine Estimated GFR (MDRD) Glucose Calcium Total Bilirubin AST ALT Alkaline Phosphatase Troponin I High Sens Total Protein Albumin Globulin Albumin/Globulin Ratio Lipase Urine Color YELLOW Urine Clarity CLEAR Urine pH 7.0 Ur Specific [place] 1.010 Urine Protein NEGATIVE Urine Glucose (UA) NEGATIVE Urine Ketones NEGATIVE Urine Occult Blood TRACE-INTA Urine Nitrite NEGATIVE Urine Bilirubin NEGATIVE Urine Urobilinogen 0.2 (NORMAL) Ur Leukocyte Esterase NEGATIVE Ur Microscopic Review NOT INDICATED Urine Culture Comments NOT INDICATED Procedures - Bedside sono Bedside sono by EMP: With use of bedside ultrasound the bladder is imaged there is a bladder diverti cula present in the bladder appears full - IVC sono (time) 1100 Bedside IVC sono: IVC measures (cm) (1.40), Dehydration (est <500ml deficit) PD MEDICAL DECISION MAKING - ED course Complexity details: reviewed old records, reviewed results, re-evaluated patient, considered differential, d/w patient ED course: 80-year-old male with hypertension has had an issue with constipation over the past 2 months and today he is found to have a postvoid residual of over 300 mL's. I am concerned that maybe this patient has chronic urinary retention and this as a reason for his constipation and subsequent intermittent hypertension. I have asked patient to follow-up with a urologist and I have referred him to Dr. Gan. He does have an appointment to see his customer service assistant next week. I have deferred treatment of hypertension to the customer service assistant. He is currently on metoprolol 25 bid. His pressure on discharge is 144/88 and he has not taken his metoprolol today. Departure - Departure Disposition: 01 Home, Self Care Clinical Impression: Urinary retention with incomplete bladder emptying, Bladder diverticulum Hypertension Qualifiers: Hypertension type: unspecified Qualified Code(s): I10 - Essential (primary) hypertension Condition: Stable Instructions: ED HTN Established, ED Retention Urinary Male Follow-Up: Jerry Ramirez MD [Primary Care Provider] - Loi Gan MD [Provider Admit Priv/Credential] - Comments: Today we have found that you have a postvoid residual of over 300 and mils of urine. There does appear to be of bladder diverticula on ultrasound exam at the bedside. A follow-up with the urologist is indicated as this could have some bearing on constipation and hypertension. Your blood pressure today was elevated and without specific treatment has come down to a reasonable range. Talk to your customer service assistant about potential changes in your medications.
[2020-05-26 11:34] LABS: BASOPHILS # (AUTO) 0.1 10^3/uL (0.0-0.1); BASOPHILS % (AUTO) 1.1 %; EOSINOPHILS # (AUTO) 0.2 10^3/uL (0.0-0.7); EOSINOPHILS % (AUTO) 3.2 %; HGB - HEMOGLOBIN 14.3 g/dL (14.0-18.0); LYMPHOCYTES % (AUTO) 15.8 %; MEAN CORPUSCULAR HEMOGLOBIN 32.9 pg (27.0-31.0); MEAN PLATELET VOLUME 9.6 fL (7.4-11.4); MONOCYTES # (AUTO) 0.5 10^3/uL (0.0-1.0); MONOCYTES % (AUTO) 8.3 %; NEUTROPHILS # (AUTO) 4.5 10^3/uL (1.5-6.6); NEUTROPHILS % (AUTO) 71.3 %; PLT - PLATELET COUNT 208 10^3/uL (130-450); RED BLOOD COUNT 4.34 10^6/uL (4.70-6.10); RED CELL DISTRIBUTION WIDTH 12.6 % (12.0-15.0); WHITE BLOOD COUNT 6.3 x10^3/uL (4.8-10.8)
[2020-05-26 11:45] LABS: BILIRUBIN,URINE NEGATIVE (NEGATIVE); GLUCOSE, URINE (UA) NEGATIVE (NEGATIVE); KETONES,URINE (UA) NEGATIVE (NEGATIVE); LEUKOCYTE ESTERASE, URINE NEGATIVE (NEGATIVE); NITRITE,URINE NEGATIVE (NEGATIVE); OCCULT BLOOD,URINE TRACE-INTA (NEGATIVE); PROTEIN,URINE NEGATIVE (NEGATIVE); UROBILINOGEN,URINE 0.2 (NORMAL) E.U./dL (NORMAL)
[2020-05-26 11:48] LABS: CLARITY,URINE CLEAR (CLEAR)
[2020-05-26 11:48] LABS: ALBUMIN 4.4 g/dL (3.2-5.5); ALBUMIN/GLOBULIN RATIO 1.6 (1.0-2.2); BILIRUBIN,TOTAL 1.2 mg/dL (0.2-1.0); CALCIUM 9.1 mg/dL (8.5-10.3); CREATININE 0.6 mg/dL (0.6-1.2); TOTAL PROTEIN 7.2 g/dL (6.7-8.2)
[2020-05-26 12:11] VITALS: BP 144/88
== END 2020-05-26 12:22 | disposition home or self-care (01) ==
LOC: ED 10:31
DX: R33.9 Retention of urine, unspecified (principal); I10 Essential (primary) hypertension; K57.90 Diverticulosis of intestine, part unspecified, without perforation or abscess without bleeding; E86.0 Dehydration; Z96.659 Presence of unspecified artificial knee joint
CPT/HCPCS: 36415; 51798; 80053; 81001; 81003; 83690; 84484; 85025; 87086; 99283; 99284

== ENCOUNTER 2020-11-09 15:34 | Outpatient (CLI) | payer MEDICARE, BC ==
--- NOTE | 2020-11-09 16:38 | DEXA Report ---
PROCEDURE: Dexa Spine and/or Hip INDICATIONS: OSTEOPOROSIS TECHNIQUE: Dual energy x-ray absorptiometry (DXA) was performed on a [employer] System. Regions measur ed are the AP Spine, femoral neck, and if needed forearm. COMPARISON: None. FINDINGS: Lumbar Spine: Bone Mineral Density 1.190 g/cm/cm,T score -0.2, normal Left Hip: Bone Mineral Density 0.67 to g/cm/cm,T score -3.0, osteoporosis Left Femoral Neck: Bone Mineral Density 0.685 g/cm/cm, T score -3.0, osteoporosis (T score greater or equal to -1.0: NORMAL) (T score from -1.1 to -2.4: OSTEOPENIA) (T score less than or equal to -2.5 to: OSTEOPOROSIS) Impression: Osteoporosis. Patients with diagnosis of osteoporosis or osteopenia should have regular bone mineral density assess ment. For those eligible for Medicare, routine testing is allowed once every 2 years. Testing frequ ency can be increased for patients who have rapidly progressing disease or for those who are receivin g medical therapy to restore bone mass. Reviewed by: Zoey Fajardo MD, PhD on 11/09/2020 4:36 PM PST Approved by: Zoey Fajardo MD, PhD on 11/09/2020 4:36 PM PST Station ID: [id number]
== END 2020-11-09 15:35 | disposition home or self-care (01) ==
LOC: DI 15:34
PROVIDERS: ATTEND Internal Medicine
DX: M81.0 Age-related osteoporosis without current pathological fracture (principal)

== ENCOUNTER 2020-11-14 11:49 | Outpatient (CLI) | payer MEDICARE, BC ==
[2020-11-14 12:10] LABS: BASOPHILS # (AUTO) 0.1 10^3/uL (0.0-0.1); BASOPHILS % (AUTO) 1.4 %; EOSINOPHILS # (AUTO) 0.4 10^3/uL (0.0-0.7); EOSINOPHILS % (AUTO) 5.6 %; HCT - HEMATOCRIT 42.5 % (42.0-52.0); HGB - HEMOGLOBIN 14.5 g/dL (14.0-18.0); LYMPHOCYTES # (AUTO) 1.3 10^3/uL (1.5-3.5); LYMPHOCYTES % (AUTO) 19.9 %; MEAN CORPUSCULAR HEMOGLOBIN 32.4 pg (27.0-31.0); MEAN CORPUSCULAR HGB CONC 34.1 g/dL (32.0-36.0); MEAN CORPUSCULAR VOLUME 95.1 fL (80.0-94.0); MEAN PLATELET VOLUME 9.6 fL (7.4-11.4); MONOCYTES # (AUTO) 0.6 10^3/uL (0.0-1.0); MONOCYTES % (AUTO) 8.7 %; NEUTROPHILS # (AUTO) 4.1 10^3/uL (1.5-6.6); NEUTROPHILS % (AUTO) 64.1 %; PLT - PLATELET COUNT 227 10^3/uL (130-450); RED BLOOD COUNT 4.47 10^6/uL (4.70-6.10); RED CELL DISTRIBUTION WIDTH 12.5 % (12.0-15.0); WHITE BLOOD COUNT 6.4 x10^3/uL (4.8-10.8)
[2020-11-14 12:24] LABS: ALBUMIN 4.3 g/dL (3.2-5.5); ALBUMIN/GLOBULIN RATIO 1.4 (1.0-2.2); ALKALINE PHOSPHATASE 52 IU/L (42-121); ALT ALANINE AMINOTRANSFERASE 13 IU/L (10-60); AST ASPARTATE AMINOTRANSFERASE 20 IU/L (10-42); BILIRUBIN,TOTAL 0.6 mg/dL (0.2-1.0); BUN - BLOOD UREA NITROGEN 13 mg/dL (6-20); CALCIUM 9.6 mg/dL (8.5-10.3); CARBON DIOXIDE - CO2 29 mmol/L (21-32); CHLORIDE 95 mmol/L (101-111); CHOL/HDL RATIO 2.2 (<5.0); CHOLESTEROL 118 mg/dL; CREATININE 0.6 mg/dL (0.6-1.2); GFR - MDRD 130 (>89); GLUCOSE 105 mg/dL (70-100); HDL CHOLESTEROL 54 mg/dL; LDL CHOLESTEROL,CALCULATED 49 mg/dL; LDL/HDL RATIO 0.9 (<3.6); POTASSIUM 4.2 mmol/L (3.5-5.0); SODIUM 133 mmol/L (135-145); TOTAL PROTEIN 7.4 g/dL (6.7-8.2); TRIGLYCERIDES 73 mg/dL; VLDL CHOLESTEROL 15 mg/dL
[2020-11-14 13:45] LABS: THYROID STIMULATING HORMONE 2.34 uIU/mL (0.34-5.60)
== END 2020-11-14 11:50 | disposition home or self-care (01) ==
LOC: LAB 11:49
PROVIDERS: ATTEND Internal Medicine
DX: I25.810 Atherosclerosis of coronary artery bypass graft(s) without angina pectoris (principal); M81.0 Age-related osteoporosis without current pathological fracture
CPT/HCPCS: 36415; 80053; 80061; 83721; 84443; 85025

== ENCOUNTER 2021-03-13 16:30 | Outpatient (CLI) | payer MEDICARE, BC ==
[2021-03-13 21:13] LABS: BASOPHILS # (AUTO) 0.1 10^3/uL (0.0-0.1); BASOPHILS % (AUTO) 1.6 %; EOSINOPHILS # (AUTO) 0.5 10^3/uL (0.0-0.7); EOSINOPHILS % (AUTO) 8.2 %; HCT - HEMATOCRIT 41.4 % (42.0-52.0); HGB - HEMOGLOBIN 14.1 g/dL (14.0-18.0); MEAN CORPUSCULAR HEMOGLOBIN 32.2 pg (27.0-31.0); MEAN CORPUSCULAR HGB CONC 34.1 g/dL (32.0-36.0); MEAN CORPUSCULAR VOLUME 94.5 fL (80.0-94.0); MEAN PLATELET VOLUME 10.1 fL (7.4-11.4); MONOCYTES # (AUTO) 0.6 10^3/uL (0.0-1.0); MONOCYTES % (AUTO) 11.1 %; NEUTROPHILS # (AUTO) 3.4 10^3/uL (1.5-6.6); NEUTROPHILS % (AUTO) 60.9 %; PLT - PLATELET COUNT 228 10^3/uL (130-450); RED BLOOD COUNT 4.38 10^6/uL (4.70-6.10); RED CELL DISTRIBUTION WIDTH 12.9 % (12.0-15.0); WHITE BLOOD COUNT 5.5 x10^3/uL (4.8-10.8)
[2021-03-13 21:20] LABS: INR 1.2 (0.8-1.2); PT - PROTHROMBIN TIME 12.8 secs (9.9-12.6)
[2021-03-13 21:37] LABS: PARTIAL THROMBOPLASTIN TIME 28.1 secs (24.9-33.3)
== END 2021-03-13 23:59 | disposition home or self-care (01) ==
LOC: LAB.N 16:30
PROVIDERS: ATTEND Physician Assistant Medical
DX: R23.3 Spontaneous ecchymoses (principal)
CPT/HCPCS: 36415; 85025; 85610; 85730

== ENCOUNTER 2021-09-30 08:00 | Outpatient (CLI) | payer MEDICARE, BC ==
[2021-09-30 18:38] LABS: THYROID STIMULATING HORMONE 1.76 uIU/mL (0.34-5.60)
[2021-09-30 19:08] LABS: CALCIUM 9.4 mg/dL (8.5-10.3); CREATININE 0.7 mg/dL (0.6-1.2); POTASSIUM 4.3 mmol/L (3.5-5.0)
== END 2021-09-30 23:59 ==
LOC: LAB.WCP 08:00
PROVIDERS: ATTEND Internal Medicine
DX: I48.91 Unspecified atrial fibrillation (principal); Z86.79 Personal history of other diseases of the circulatory system
CPT/HCPCS: 36415; 80048; 84443

== ENCOUNTER 2021-10-11 17:56 | Outpatient (CLI) | payer MEDICARE, BC ==
--- NOTE | 2021-10-12 00:56 | XRAY Report ---
PROCEDURE: Foot 3 View RT INDICATIONS: RIGHT FOOT TOE PAIN TECHNIQUE: 3 views of the foot were acquired. COMPARISON: 05/08/2020 FINDINGS: Bones: Focal degenerative change is seen involving the first metatarsophalangeal joint, with joint s pace narrowing and prominent spur formation. Milder degenerative changes are seen elsewhere. Plantar and Achilles calcaneal spurs are seen. Accessory ossicles are seen, including a multifocal os perone um and an os trigonum. No fractures or dislocations. No suspicious bony lesions. Soft tissues: No tibiotalar joint effusion. Achilles tendon appears normal. Calcification can be s een of the distal arteries, which is commonly observed in patients with long-standing diabetes. Pleas e correlate with known patient history. IMPRESSION: Focal prominent first metatarsophalangeal joint degenerative change is again seen. No michelle acute abnormality can be seen by plain film. Reviewed by: Olayinka Ayon MD on 10/11/2021 11:55 PM AKST Approved by: Olayinka Ayon MD on 10/11/2021 11:55 PM [facility] Station ID: [id number]
== END 2021-10-11 23:59 | disposition home or self-care (01) ==
LOC: DI.N 17:56
PROVIDERS: ATTEND Physician Assistant
DX: M79.674 Pain in right toe(s) (principal); M19.071 Primary osteoarthritis, right ankle and foot

== ENCOUNTER 2022-07-04 13:48 | Outpatient (CLI) | payer MEDICARE, BC ==
--- NOTE | 2022-07-04 15:03 | Ultrasound Report ---
PROCEDURE: Duplex Ext Veins Left INDICATIONS: LEFT CALF PAIN TECHNIQUE: Real-time imaging, as well as color and pulse Doppler interrogation, were performed of the lower extr emity deep veins from the inguinal ligament to the popliteal fossa. COMPARISON: None. FINDINGS: The deep veins are normally compressible, and free of intraluminal thrombus. Color and pu lse Doppler demonstrate normal phasic intraluminal flow. There is normal augmentation response to di stal compression maneuver. Note is made of a superficial venous chronic partially occlusive thrombus as an incidental finding. IMPRESSION: No acute or subacute appearing DVT found left lower extremity. Calcified Reviewed by: Solomon Araya MD on 07/04/2022 3:01 PM PDT Approved by: Solomon Araya MD on 07/04/2022 3:01 PM PDT Station ID: [id number]
== END 2022-07-04 13:49 | disposition home or self-care (01) ==
LOC: DI 13:48
PROVIDERS: ATTEND Nurse Practitioner Family
DX: M79.662 Pain in left lower leg (principal); I35.8 Other nonrheumatic aortic valve disorders; I10 Essential (primary) hypertension; Z86.79 Personal history of other diseases of the circulatory system

== ENCOUNTER 2022-08-12 09:53 | Outpatient (CLI) | payer MEDICARE, BC ==
--- NOTE | 2022-08-12 15:47 | DEXA Report ---
PROCEDURE: Dexa Spine and/or Hip INDICATIONS: OSTEOPOROSIS TECHNIQUE: Dual energy x-ray absorptiometry (DXA) was performed on a [employer] System. Regions measur ed are the AP Spine, femoral neck, and if needed forearm. COMPARISON: None. FINDINGS: Lumbar Spine: Bone Mineral Density 1.216 g/cm/cm,T score 0, normal Left Hip: Bone Mineral Density 0.681 g/cm/cm,T score -2.9, osteoporosis Left Femoral Neck: Bone Mineral Density 0.681 g/cm/cm, T score 3.0, osteoporosis (T score greater or equal to -1.0: NORMAL) (T score from -1.1 to -2.4: OSTEOPENIA) (T score less than or equal to -2.5 to: OSTEOPOROSIS) Impression: Osteoporosis is present within the left hip and femoral neck. Patients with diagnosis of osteoporosis or osteopenia should have regular bone mineral density assess ment. For those eligible for Medicare, routine testing is allowed once every 2 years. Testing frequ ency can be increased for patients who have rapidly progressing disease or for those who are receivin g medical therapy to restore bone mass. Reviewed by: Annabel Roberto MD on 08/12/2022 3:46 PM PST Approved by: Annabel Roberto MD on 08/12/2022 3:46 PM PST Station ID: [id number]
== END 2022-08-12 09:54 | disposition home or self-care (01) ==
LOC: DI 09:53
PROVIDERS: ATTEND Physician Assistant
DX: Z13.6 Encounter for screening for cardiovascular disorders (principal); M85.89 Other specified disorders of bone density and structure, multiple sites
CPT/HCPCS: 36415; 83036

== ENCOUNTER 2023-06-11 09:01 | Outpatient (CLI) | payer MEDICARE, BC ==
--- NOTE | 2023-06-11 10:08 | XRAY Report ---
PROCEDURE: Thoracic Spine 2 View INDICATIONS: FALL,THORACIC SPINE PX TECHNIQUE: 3 views of the thoracic spine were acquired. COMPARISON: X-ray wrist 01/28/2022 FINDINGS: Bones: Decreased osseous mineralization. Multilevel degenerative changes with disc height loss, michelle nal spurring and degenerative endplate changes. Prominent osteophytosis which may represent diffuse i diopathic skeletal hyperostosis. Redemonstration of multiple mid and lower thoracic compression defor mities which appears similar compared to prior examinations. No suspicious bony lesions. 12 pairs of ribs are noted, and appear intact where visualized. Soft tissues: No paravertebral stripe thickening. Redemonstration of left lung base pulmonary nodul e measuring approximately 1 cm. Median sternotomy wires in place. Surgical clips projecting over the left mediastinum and right upper quadrant. IMPRESSION: Multilevel degenerative changes of the thoracic spine with diffusely decreased osseous position. Mult iple mid to lower thoracic compression deformities which appear similar compared to prior exams. If t here is concern for acute compression deformity, MRI may be of value. Reviewed by: Modesto Gunn MD on 06/11/2023 10:07 AM PDT Approved by: Modesto Gunn MD on 06/11/2023 10:07 AM PDT Station ID: [id number]
--- NOTE | 2023-06-11 13:35 | XRAY Report ---
PROCEDURE: Ribs 3 View BILAT INDICATIONS: FALL,ANTERIOR UPPER RIB PX TECHNIQUE: 3 views of the bilateral ribs were acquired. COMPARISON: None. FINDINGS: Surgical changes and devices: Midline sternotomy wires. Bones and chest wall: No fractures or dislocations. No suspicious bony lesions. Overlying soft tis sues appear unremarkable. Lungs and pleura: The visualized lung appears clear. No pleural effusions or pneumothorax are visib le calcified granuloma, left lung base. IMPRESSION: No displaced fracture or pneumothorax. Chronic granulomatous disease. Reviewed by: Kenn Pires MD on 06/11/2023 1:33 PM PDT Approved by: Kenn Pires MD on 06/11/2023 1:33 PM PDT Station ID: [id number]
== END 2023-06-11 09:02 | disposition home or self-care (01) ==
LOC: DI 09:01
DX: M47.814 Spondylosis without myelopathy or radiculopathy, thoracic region (principal); R07.81 Pleurodynia

== ENCOUNTER 2023-06-18 22:41 | Emergency (ER) | payer MEDICARE, BC ==
[2023-06-18] MEDS ORDERED: diazePAM 5 MG TABLET PO STA (23:34)
[2023-06-18] MEDS ORDERED: HYDROcod/ACET 5/325 Prepack 4 PO STA (23:34)
[2023-06-18] MEDS ORDERED: oxyCODONE 5 MG TABLET PO STA (23:34)
--- NOTE | 2023-06-18 23:38 | ED Physician Documentation ---
History of Present Illness - Stated complaint Stated Complaint: BACK PX - Chief complaint Chief Complaint: Back Pain - Additonal information Additional information: Patient 83-year-old male presenting to the emergency department with back pain. Reports had a fall 2 weeks ago while walking his dog. Has had increasing back pain since that time. Did contact his primary care doctor and had medications sent to his preferred pharmacy but was unable to get there before they closed this evening. Comes in requesting medication for pain control. States has been taking ibuprofen and acetaminophen without relief. Chart review demonstrates x-rays performed 06/11 that demonstrated degenerative changes without clear fracture or new compression deformity however the radiology report does suggest MRI if there are persistent symptoms. Review of Systems Constitutional: denies: Fever Eyes: denies: Loss of vision Ears: denies: Loss of hearing Nose: denies: Rhinorrhea / runny nose Throat: denies: Dental pain / toothache Cardiac: denies: Chest pain / pressure, Palpitations Respiratory: denies: Dyspnea GI: denies: Abdominal Pain : denies: Dysuria Skin: denies: Rash Musculoskeletal: reports: Back pain PD PAST MEDICAL HISTORY - Past Medical History Cardiovascular: Atrial flutter Respiratory: None Neuro: None Endocrine/Autoimmune: None GI: None : Benign prostate hypertrophy, Kidney stones HEENT: Other Psych: None Musculoskeletal: Osteoarthritis, Osteoporosis, Scoliosis, Chronic back pain Derm: None - Past Surgical History Past Surgical History: Yes Ortho: Knee replacement, Other HEENT: Tonsil/Adenoidectomy - Present Medications Home Medications: Ambulatory Orders Medication Instructions Recorded Confirmed Alendronate [Fosamax] 70 mg PO ONCE 03/26/18 10/26/19 Finasteride [Proscar] 5 mg PO DAILY 03/26/18 10/26/19 Metoprolol Tartrate 25 mg PO DAILY #20 tablet 03/26/18 10/26/19 Tamsulosin [Flomax] 0.4 mg PO DAILY 03/26/18 10/26/19 Trazodone HCl 50 mg PO QPM PRN 03/26/18 10/26/19 - Allergies Allergies/Adverse Reactions: Allergies Allergy/AdvReac Type Severity Reaction Status Date / Time No Known Drug Allergies Allergy Verified 06/18/23 22:59 - Social History Does the pt smoke?: No Smoking Status: Never smoker Does the pt drink ETOH?: Yes Does the pt have substance abuse?: No - Immunizations Immunizations are current?: Yes - POLST Patient has POLST: No PD ED PE NORMAL - Vitals Vital signs reviewed: Yes (Within normal limits) - General General: Alert and oriented X 3, No acute distress, Other (Elderly, kyphosis hump) - HEENT HEENT: Atraumatic, PERRL, EOMI, Ears normal, Moist mucous membranes, Pharynx benign - Neck Neck: Supple, no meningeal sign, No bony TTP, No adenopathy, Thyroid normal, No JVD, No bruit - Cardiac Cardiac: RRR, No murmur, No gallop, Strong equal pulses - Respiratory Respiratory: No respiratory distress, Clear bilaterally - Abdomen Abdomen: Normal bowel sounds, Soft, Non tender - Male Male : Deferred - Rectal Rectal: Deferred - Back Back: No CVA TTP, Other (There is mid thoracic paraspinal muscle tenderness to palpation. There is no point tenderness to palpation.) - Derm Derm: Normal color Results - Vitals Vitals: Vital Signs - 24 hr 06/18/23 22:50 Temperature 36.7 C Heart Rate 66 Respiratory 18 Rate Blood Pressure 132/75 H O2 Saturation 96 Oxygen O2 Source Room air PD Medical Decision Making - ED course Complexity details: reviewed old records, reviewed results, considered differential, d/w patient ED course: Patient 83-year-old male presenting to the emergency department with back pain. Afebrile, hemodynamic stable on arrival to the emergency department. Presented today with history of back pain that is been getting progressively worse x2 weeks. Has a kyphotic spine without point tenderness to the spine on exam but there is some Thoracic spinal tenderness to palpation. He did have x-rays performed after the fall and I did review these. They demonstrated degenerative changes without clear fracture however he does have a significant amount of age-related change to his spine definitive compression fracture cannot be ruled out. There is no indication of unstable thoracic spinal cord fracture on review of these images. He was given medication for pain control here in the emergency department. I did consider getting advanced imaging such as CT scans here in the emergency room however they do not appear to be required emergently and he is following with his primary care doctor. I will provide him with a short course of [place] to go home with with instructions to follow-up with his PCP as soon as possible. Departure - Departure Disposition: 01 Home, Self Care Clinical Impression: Back pain Comments: Thank you for allowing us to care for you today [facility]. Today in the emergency department you were given medication for pain control as well as a starter pack for [place] (hydrocodone-acetaminophen). I want you to continue to follow-up carefully with your primary care doctor concerning the pain you been having for the last several weeks. If anytime your pain worsens or if you begin to have new or worsening symptoms of any kind please return to the emergency department.
[2023-06-18 23:55] VITALS: BP 125/74; O2SAT 100
== END 2023-06-18 23:53 | disposition home or self-care (01) ==
LOC: ED 22:41
DX: M54.9 Dorsalgia, unspecified (principal)
CPT/HCPCS: 99283; A9270; 80053; 83605; 83690; 85025

== ENCOUNTER 2023-07-01 16:04 | Outpatient (CLI) | payer MEDICARE, BC ==
--- NOTE | 2023-07-02 08:38 | MRI Report ---
PROCEDURE: THORACIC SPINE WO INDICATIONS: COMPRESSION DEFORMITY TECHNIQUE: Noncontrast sagittal T1 spine echo and T2 fast spin echo, sagittal STIR, axial T1 and T2 fast spin ec ho through the thoracic spine. COMPARISON: None. FINDINGS: Image quality: Excellent. Alignment and Curvature: There is normal bony alignment. Bone Marrow: There is an acute moderate inferior endplate compression fracture of T6. There are chron ic compressions of T7, T8, T9, T11, T12, L1, and L2. There are L3 and L4 compression fractures seen o n the large [id number] T2-weighted images, which most likely are chronic. There is resultant incre ased thoracic kyphosis. Spinal Cord: Visualized spinal cord is normal in size and signal. Paraspinous Soft Tissues: No paravertebral masses. Miscellaneous: On axial images, central canal and foramina appear widely patent at all scanned level s. IMPRESSION: 1. Acute moderate inferior endplate compression fracture of T6. 2. 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 Reviewed by: Kenn Pires MD on 07/02/2023 8:36 AM PDT Approved by: Kenn Pires MD on 07/02/2023 8:36 AM PDT Station ID: [id number]
== END 2023-07-01 16:05 | disposition home or self-care (01) ==
LOC: DI 16:04
PROVIDERS: ATTEND Physician Assistant
DX: M48.54XA Collapsed vertebra, not elsewhere classified, thoracic region, initial encounter for fracture (principal); M40.294 Other kyphosis, thoracic region

== ENCOUNTER 2023-08-07 09:30 | Outpatient (CLI) | payer MEDICARE, BC ==
--- NOTE | 2023-08-07 14:11 | XRAY Report ---
PROCEDURE: Chest 2 View X-Ray INDICATIONS: COUGH TECHNIQUE: 2 views of the chest were acquired. COMPARISON: X-ray 06/03/2023. FINDINGS: Surgical changes and devices: Median sternotomy wires with fracture of the superiormost wire.. Lungs and pleura: No pleural effusions or pneumothorax. Nodule the left base is stable back to 2018 likely a calcified granuloma. Lungs are otherwise clear. Mediastinum: Mediastinal contours appear normal. Heart size is normal. Bones and chest wall: No suspicious bony lesions. Degenerative change the spine with exaggerated ky phosis and chronic vertebral body compression deformities. Diffusely decreased osseous mineralization . Overlying soft tissues appear unremarkable. IMPRESSION: No acute cardiopulmonary process. Reviewed by: Modesto Gunn MD on 08/07/2023 2:10 PM PST Approved by: Modesto Gunn MD on 08/07/2023 2:10 PM PST Station ID: [id number]
== END 2023-08-07 09:45 | disposition home or self-care (01) ==
LOC: DI.N 09:30
PROVIDERS: ATTEND Family Medicine
DX: R05.9 Cough, unspecified (principal)